=== PATIENT | male | born 1955 | race Caucasian/White ===

== ENCOUNTER 2016-02-19 18:01 | Inpatient (IN) | payer SELFPAY ==
--- NOTE | 2016-02-19 19:04 | RAD ---
Examination: AP pelvis and two-view right hip. Clinical indication:Right hip pain fall on ice. Comparisons:None Findings: Pelvis: The pelvic ring is intact. No displaced fractures identified. The sacrum and anterior sacral neuroforamina are grossly within normal limits. Right hip: Fracture: There is a transverse fracture of the right femoral neck. There is slight impaction at the fracture site. Joint space: There is bilateral hip joint space narrowing with osteoarthritis. Femoral head: No subchondral collapse is identified. Acetabulum: Acetabular ossified formation is noted. Soft tissues: Grossly unremarkable. IMPRESSION: Transverse fracture right femoral neck with slight impaction. There is bilateral hip osteoarthritis. Currently no discernible displaced pelvic fracture is identified.
[2016-02-19 19:48] LABS: ABSOLUTE NEUTROPHIL COUNT 8.8 K/mm3 (1.8-7.7); BASO % 0.4 % (0.2-1.0); EOS # 0.1 (0.0-0.5); EOS % 1.3 % (0.9-2.9); HEMATOCRIT 41.4 % (32.0-52.0); HEMOGLOBIN 13.8 gm/l (14.0-18.0); IMM NEUT% 0.3 % (0-1); LYMPH % 8.9 % (15-45); MEAN CELL VOLUME 94.1 fl (80.0-94.0); MEAN CORPUSCULAR HEMOGLOBIN 31.4 pg (27.0-31.0); MEAN CORPUSCULAR HGB CONC 33.3 g/dl (33.0-37.0); MEAN PLATELET VOLUME 11.2 fl (7.4-10.4); MONO # 0.7 (0.0-0.8); MONO % 6.5 % (4-12); NEUT % 82.6 % (43-75); PLATELET COUNT 196 K/mm3 (130-400); RED CELL DISTRIBUTION WIDTH 12.2 % (11.5-14.5)
[2016-02-19 20:02] LABS: INR 1.02; PROTHROMBIN TIME 10.7 SECONDS (9.3-11.4)
[2016-02-19 20:05] LABS: ALB/GLOB RATIO 1.5 (>1.0); ALBUMIN 4.2 gm/dL (3.5-5.7); CALCIUM 9.2 mg/dL (8.6-10.3)
[2016-02-19] MEDS ORDERED: BISACODYL 5 MG TABLET.EC PO PRN (20:16)
[2016-02-19] MEDS ORDERED: BISACODYL 10 MG SUP PR PRN (20:16)
[2016-02-19] MEDS ORDERED: SODIUM CHLORIDE 0.9% 100 ML IV PRN (20:16)
[2016-02-19] MEDS ORDERED: MENTHOL/CETYLPYRD 1 EACH LOZENGE PO PRN (20:16)
[2016-02-19] MEDS ORDERED: BLISTEX LIPSTICK 1 EACH TP PRN (20:16)
[2016-02-19] MEDS ORDERED: MAGNESIUM HYDROXIDE 30 ML UDCUP PO PRN (20:16)
[2016-02-19] MEDS ORDERED: ONDANSETRON 4 MG/2ML 2 ML VIAL IV PRN (20:19)
[2016-02-19 20:28] VITALS: BMI 23.0
[2016-02-19] MEDS ORDERED: PUMP TUBING ONE (20:33)
[2016-02-19] MEDS: D5 1/2NS with 20 mEq KCL 1,000 ML IV SCH (20:36)
[2016-02-19] MEDS: DOCUSATE SODIUM 100 MG CAPSULE PO SCH (20:37)
[2016-02-19] MEDS: KETOROLAC TROMETHAMINE 15 MG/ML VIAL IV PRN (20:41)
[2016-02-19] MEDS: MORPHINE SULFATE 2 MG/ML SYRINGE IV PRN (22:20)
[2016-02-20] MEDS: KETOROLAC TROMETHAMINE 15 MG/ML VIAL IV PRN (03:11)
[2016-02-20] MEDS ORDERED: SODIUM CHLORIDE 0.9% FLUSH 10 ML ONE (03:36)
[2016-02-20] MEDS ORDERED: IV START KIT ONE (03:37)
[2016-02-20] MEDS: MORPHINE SULFATE 2 MG/ML SYRINGE IV PRN (03:57)
--- NOTE | 2016-02-20 04:57 | HP ---
SAMUEL LECHUGA [id number] DATE OF ADMISSION: February 19, 2016 CHIEF COMPLAINT: Right hip pain. HISTORY OF PRESENT ILLNESS: The patient is a 61-year-old male without past medical history who slipped and fell on the ice today about 10:30 landing on his right hip. He did not notice any injury elsewhere but had difficulty bearing weight after that. He took some ibuprofen, but with ongoing difficulty came to the emergency room and on x-ray fracture was noted. Hospitalist service requested to admit to facilitate operative repair. PAST MEDICAL HISTORY: Remarkable for: 1. Some osteoarthritis. 2. He had hepatitis A as a child while in [place]. PAST SURGICAL HISTORY: Cataracts which have been replaced bilaterally. ALLERGIES: NO KNOWN DRUG ALLERGIES. MEDICATIONS: No prescription only occasional [id number] ibuprofen. 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 He has been to Blanca for 32 years. They have five kids. No smoking, no alcohol. He goes to [employer] in [place]. He was actually born in [place] but grew up in [place] and then also lived in [place]. He does speak Romansh but speaks Nepalese fluently. He has one cat. He enjoys woodworking. FAMILY HISTORY: Father is 84, has some age related illnesses and some Alzheimer's and colon surgery. Mother is 83. She has had her hip replaced. His paternal grandmother has had some osteoporosis. REVIEW OF SYSTEMS: Eyes have been okay. Ears, okay. Nose, okay. Mouth, okay. Neck is okay although sometimes he has a little bit of difficulty swallowing if he is trying to swallow fast. No lung history. No heart history. He has an occasional history of stomach acid reflux post prandial. He has had some constipation. No urinary complaints. Legs have been okay, just some arthritis. No skin complaints. PHYSICAL EXAM: GENERAL: A very pleasant male in the emergency department with his . VITAL SIGNS: Blood pressure 147/77, pulse 99, respirations 12, 98.6 temperature, 95% saturation on room air. He reports being about 6 feet tall and 170 pounds. HEAD: Head is normocephalic, atraumatic. EYES: Are unremarkable. EARS: Some cerumen noted bilaterally. Hearing is adequate. NOSE: Is normal. MOUTH: Is unremarkable. Dentition is intact. NECK: Is supple, no jugular venous distension, no masses, no tenderness LUNGS: Clear to auscultation bilaterally. HEART: Generally a regular rate and rhythm but no murmur noted. ABDOMEN: Soft, nontender, nondistended. Bowel sounds are normal. No rebound, no guarding, no masses. Right groin with some tenderness consistent with hip fracture. GENITOURINARY: Exam is deferred. LOWER EXTREMITIES: Without clubbing, cyanosis or edema. Right leg is externally rotated and slightly shortened. NEUROLOGIC: Is unremarkable. He is oriented times three. LABORATORY: His labs showed a white count of 10.7, hemoglobin 13.8, MCV of 94.1, platelets 196, INR 1.02. Sodium 137, potassium 3.9, chloride 103, anion gap 10, BUN 11, creatinine 1.0, glucose 107, calcium 9.2. Liver function tests are normal. IMAGING: X-ray shows transfer fracture of the right femoral neck with slight impaction, bilateral hip osteoarthritis. No pelvic fracture identified. ELECTROCARDIOGRAM: No electrocardiogram is available yet. ASSESSMENT AND PLAN: 1. Right femoral neck fracture with slight impaction. Appreciate orthopedic care. Dr. Torres indicates this is likely to be repaired Saturday, February 20, 2016. Anticipate making him nothing by mouth after midnight. Will order pain medicines, plan IV fluids and appreciate orthopedic input. 2. Venous thrombosis prophylaxis. Anticipate mechanical treatment. cc: Karthikeyan Palomo M.D.
[2016-02-20 06:11] LABS: HEMATOCRIT 35.7 % (32.0-52.0); HEMOGLOBIN 11.8 gm/l (14.0-18.0); MEAN CELL VOLUME 94.4 fl (80.0-94.0); MEAN CORPUSCULAR HEMOGLOBIN 31.2 pg (27.0-31.0); MEAN CORPUSCULAR HGB CONC 33.1 g/dl (33.0-37.0); RED CELL DISTRIBUTION WIDTH 12.2 % (11.5-14.5)
[2016-02-20 06:34] LABS: CALCIUM 8.2 mg/dL (8.6-10.3)
[2016-02-20] MEDS: DOCUSATE SODIUM 100 MG CAPSULE PO SCH ×2 (08:00→22:48)
--- NOTE | 2016-02-20 10:15 | PDOC43 ---
- Subjective Chief Complaint: hip fx Patient reports a little nausea, but otherwise doing ok. No new c/o, just soreness from fx. - Objective Vital Signs Temperature 97.8 F 02/20/16 07:00 Pulse Rate 62 02/20/16 07:00 Respiratory Rate 20 02/20/16 07:00 Blood Pressure 104/62 02/20/16 07:00 O2 Saturation by Pulse Oximetry 94 02/20/16 07:00 Oxygen Delivery Method Room Air Oxygen Flow Rate 0 Vital Signs Last 12 Hours Temp Pulse Resp BP Pulse Ox 02/20/16 07:00 97.8 F 62 20 104/62 94 02/20/16 03:18 72 16 112/70 94 02/20/16 03:00 61 16 100/62 90 02/20/16 01:10 16 Intake and Output 02/18/16 02/19/16 02/20/16 23:59 23:59 23:59 Intake Total 1101 Output Total 1075 Balance 26 General: Alert, Cooperative, No Acute Distress HEENT: Atraumatic Lungs: Clear to Auscultation Bilaterally, Normal Air Movement Cardiovascular: Regular Rate and Rhythm Abdomen: Soft, Normal Bowel Sounds, Non-Distended, No Tenderness, No Rebounding Extremities: Other (R hip marked for repair), No Edema Skin: Normal Color Neurological: Normal Speech Psych/Mental Status: Normal Affect Laboratory 02/20/16 05:15 02/20/16 05:15 02/20/16 05:15 RBC 3.78 L MCV 94.4 H MCH 31.2 H Anion Gap 7 L Calcium 8.2 L Current Medications: Current meds reviewed in EMR. Active Medications Benzocaine/Menthol (Cepacol) 1 each PO PRN PRN PRN Reason: Sore Throat Bisacodyl (Dulcolax) 10 mg OR DAILY PRN PRN Reason: Constipation Bisacodyl (Dulcolax) 5 mg PO DAILY PRN PRN Reason: Constipation Docusate Sodium (Colace) 100 mg PO BID [facility] Last Admin: 02/20/16 08:00 Dose: Not Given Potassium Chloride/Dextrose/Sod Cl (D51/2ns With 20 Meq Kcl) 1,000 mls @ 75 mls /hr IV .[id number] [facility] Last Admin: 02/19/16 20:36 Dose: 75 mls/hr Sodium Chloride (Sodium Chloride 0.9%) 100 mls @ 25 mls/hr IV PRN PRN PRN Reason: Flush Ketorolac Tromethamine (Toradol) 15 mg IV Q6H PRN PRN Reason: Pain Last Admin: 02/20/16 03:11 Dose: 15 mg Magnesium Hydroxide (Milk Of Magnesia) 30 ml PO DAILY PRN PRN Reason: Constipation Morphine Sulfate (Morphine Sulfate) 2 mg IV Q1H PRN PRN Reason: Pain Last Admin: 02/20/16 03:57 Dose: 2 mg Ondansetron HCl (Zofran) 4 mg IV Q4H PRN PRN Reason: Nausea/Vomiting Last Admin: 02/20/16 03:11 Dose: 4 mg Petrolatum/Paraffin/Mineral Oil (Blistex) 1 each TP PRN PRN PRN Reason: Dry and/or chapped lips Sodium Chloride (Normal Saline 10ml Flush) 10 - 50 ml IV PRN PRN PRN Reason: IV Flush Last Admin: 02/20/16 03:57 Dose: 30 ml Sodium Chloride (Normal Saline 10ml Flush) 10 ml IV Q8HR [facility] Last Admin: 02/20/16 08:00 Dose: Not Given - Problems: Assessment/Plan (1) Closed right femoral fracture Qualifiers: Encounter type: initial encounter Femur location: neck Qualifier Code: (S72.001A) Fracture of unspecified part of neck of right femur, initial encounter for closed fracture Status: Acute Assessment/Plan: Anticipating repair today. Dr Palomo indicated SOTO would be best considering hip arthritis. Checking labs for preop. VTE Prophylaxis: mechanical Disposition: TBD, but pt underlying status quite good.
[2016-02-20] MEDS: D5 1/2NS with 20 mEq KCL 1,000 ML IV SCH ×4 (10:29→22:33)
--- NOTE | 2016-02-20 11:10 | CONS ---
Jm LECHUGA Kraig [id number] : 1955 ORTHOPEDIC CONSULTATION DATE OF CONSULTATION: February 19, 2016 HISTORY OF PRESENT ILLNESS: Jm Lechuga is a 61-year-old male seen at the request of the emergency department physician for evaluation of a right hip fracture. The patient is examined in his bed in the presence of his and daughter. Imaging studies and medical records are reviewed. HISTORY OF INJURY: Mr. Lechuga states that he slipped on the ice earlier today approximately 10:30 and fell onto his right hip. He had significant pain. He got up and walked into the house, thinking that he had a bruise, however the pain persisted. He subsequently presented to the emergency department at [facility] where he was examined by the emergency department physician Dr. Kohli who ordered x-rays and noted the presence of an impact right femoral neck fracture. I was subsequently contacted for orthopedic consultation and Dr. Faith the transmission systems operator hospitalist admitted the patient. His current complaint, he states that he has pain in the groin area. He denies any numbness or tingling. He denies any dizziness or other symptoms. He is recumbent in bed and is not weight bearing at this time. PAST MEDICAL HISTORY: He denies any history of systemic or metabolic diseases. PAST SURGICAL HISTORY: Bilateral cataract surgery. SOCIAL HISTORY: He denies the use of alcohol or tobacco products. 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 PHYSICAL EXAMINATION: GENERAL: Reveals a well nourished, well developed male who is cooperative with the examination. VITAL SIGNS: He weighs 77.11 kg and is 182.88 cm in height. FOCUSED EXAM: Inspection of the right lower extremity indicates a mild degree of shortening and external rotation. He has intact neurovascular status. Good peripheral pulses including dorsalis pedis and posterior tibial. He has good movement of the foot and ankle, knee flexion causes him pain in the area of the hip. He has right hip pain with movement of the hip. IMAGING STUDIES: X-rays of the right hip indicate the presence of a right femoral neck fracture with some slight impaction and degenerative changes at hip.. DIAGOSTIC IMPRESSION: Right femoral neck fracture. PLAN: We discussed with the patient the various treatment options. I have I advised him that I will be signing off to Dr. Palomo tomorrow morning and I will ask him to kindly take over his orthopedic care. We discussed the possible treatment options; however the final decision will be between Dr. Palomo and Mr. Lechuga. He will be kept nothing orally status and I will advise Dr. Palomo tomorrow when I sign off to him. The patient feels comfortable with this decision. Job [id number] cc: [facility]
[2016-02-20] MEDS ORDERED: BUPIVACAINE 0.25% (MDV) 24 ML, MORPHINE SULFATE 8 MG, EPINEPHRINE 0.3 MG in SODIUM CHLO... IF PRN (12:00)
[2016-02-20] MEDS ORDERED: BUPIVACAINE 0.25% (MDV) 20 ML in SODIUM CHLORIDE 0.9% FLUSH 20 ML IF PRN (12:01)
--- NOTE | 2016-02-20 12:22 | RAD ---
02/20/2016 12:17 PM CHEST - 1 VIEW History: Preop chest x-ray Comparison: None Findings: Single AP view of the chest is obtained. The lungs are clear with out effusion or pneumothorax. The cardiomediastinal silhouette is unremarkable.. The osseous structures demonstrate degenerative changes of the bilateral shoulder. Joint bodies are thought to be present on the left. There may also be an area of soft tissue calcification associated with the proximal left humerus seen near the edge of the film. IMPRESSION: No acute intrathoracic process. Other findings as above.
[2016-02-20] MEDS ORDERED: ONDANSETRON 4 MG/2ML 2 ML VIAL IV ONE (14:30)
[2016-02-20] MEDS ORDERED: CELECOXIB 200 MG CAPSULE PO ONE (14:30)
[2016-02-20] MEDS ORDERED: GABAPENTIN 600 MG TABLET PO ONE (14:30)
[2016-02-20] MEDS ORDERED: FAMOTIDINE 20 MG TABLET PO ONE (14:30)
[2016-02-20] MEDS ORDERED: TRANEXAMIC ACID 1,000 MG in SODIUM CHLORIDE 0.9% 100 ML IV PRN (14:30)
[2016-02-20] MEDS ORDERED: OXYCODONE HCL 10 MG TAB.SR PO ONE (14:30)
[2016-02-20] MEDS ORDERED: TRAMADOL HCL 50 MG TABLET PO ONE (14:30)
[2016-02-20] MEDS ORDERED: POLYMYXIN B SULFATE 500,000 UNITS, BACITRACIN 25,000 UNITS in SODIUM CHLORIDE 3 L IRRIG... IR PRN (14:30)
[2016-02-20] MEDS ORDERED: CLONIDINE HCL 0.1 MG/24 HR (7 DAY PATCH) TD SCH (14:30)
[2016-02-20] MEDS ORDERED: LACTATED RINGERS 1,000 ML ONE (15:29)
[2016-02-20] MEDS ORDERED: CEFAZOLIN SODIUM 2 GRAM PREMIX 2 G in Premix (D5W) 100 ml 1 EACH IV PRN (15:32)
[2016-02-20] MEDS ORDERED: CEFAZOLIN SODIUM 2 GRAM PREMIX 100 ML IV ONE (15:33)
[2016-02-20] MEDS ORDERED: MIDAZOLAM HCL 5 MG/5 ML VIAL ONE (16:48)
[2016-02-20] MEDS ORDERED: FENTANYL 100 MCG/2 ML VIAL ONE (16:50)
[2016-02-20] MEDS ORDERED: MORPHINE SULFATE 4 MG/ML SYRINGE IV PRN (17:24)
[2016-02-20] MEDS ORDERED: NALOXONE HCL 0.4 MG/ML VIAL IV PRN (17:24)
[2016-02-20] MEDS ORDERED: MEPERIDINE 25 MG/ML SYRINGE IV PRN (17:24)
[2016-02-20] MEDS ORDERED: HYDRALAZINE HCL 20 MG/1 ML VIAL IV PRN (17:24)
[2016-02-20] MEDS ORDERED: ATROPINE SULFATE 0.4 MG/1 ML VIAL IV PRN (17:24)
[2016-02-20] MEDS ORDERED: PROMETHAZINE HCL 25 MG/ML VIAL IM PRN (17:24)
[2016-02-20] MEDS ORDERED: ONDANSETRON 4 MG/2ML 2 ML VIAL IV PRN (17:24)
[2016-02-20] MEDS ORDERED: LACTATED RINGERS 1,000 ML IV SCH (17:30)
[2016-02-20] MEDS ORDERED: BUPIVACAINE 0.75% SPINAL AMPUL 2 ML ONE (18:31)
[2016-02-20] MEDS ORDERED: SPINAL PROCEDURAL TRAY 1 EACH ONE (18:31)
--- NOTE | 2016-02-20 19:49 | RAD ---
PELVIS COMPARISON: Pelvis right hip 3 views 02/19/2016 HISTORY: Daily postop right hip arthroplasty. FINDINGS: Views: AP pelvis. Bones: Normal. Joints: Satisfactory positioning of the right total hip uncemented arthroplasty. Soft tissues: Normal. IMPRESSION: 1. Satisfactory appearance of the right total hip uncemented arthroplasty.
[2016-02-20] MEDS ORDERED: OXYCODONE HCL 5 MG TABLET PO PRN (19:57)
[2016-02-20] MEDS ORDERED: CALCIUM CARBONATE 500 MG TAB.CHEW PO PRN (19:57)
[2016-02-20] MEDS ORDERED: HYDROXYZINE PAMOATE 25 MG CAPSULE PO PRN (19:57)
[2016-02-20] MEDS ORDERED: TEMAZEPAM 15 MG CAPSULE PO PRN (19:57)
[2016-02-20] MEDS ORDERED: HYDROMORPHONE HCL 0.5 MG/0.5 ML SYRINGE IV PRN (19:57)
[2016-02-20] MEDS ORDERED: KETOROLAC TROMETHAMINE 30 MG/ML 1 ML VIAL IV PRN (19:57)
[2016-02-20] MEDS: ASCORBIC ACID 500 MG TABLET PO SCH (22:49)
[2016-02-20] MEDS: ACETAMINOPHEN 500 MG TABLET PO SCH (22:49)
[2016-02-21] MEDS ORDERED: PUMP TUBING ONE (00:31)
[2016-02-21] MEDS: CEFAZOLIN SODIUM 1 GRAM PREMIX 1 G in Premix (D5W) 50 ml 1 EACH IV SCH ×2 (00:34→09:37)
[2016-02-21] MEDS: D5 1/2NS with 20 mEq KCL 1,000 ML IV SCH ×5 (01:28→20:43)
[2016-02-21] MEDS ORDERED: TRAMADOL HCL 50 MG TABLET PO PRN (02:00)
[2016-02-21] MEDS: ACETAMINOPHEN 500 MG TABLET PO SCH ×4 (03:27→20:45)
[2016-02-21] MEDS: ONDANSETRON 4 MG/2ML 2 ML VIAL IV PRN ×2 (03:27→09:37)
[2016-02-21 06:00] LABS: HEMATOCRIT 33.6 % (32.0-52.0); MEAN CELL VOLUME 95.2 fl (80.0-94.0); MEAN CORPUSCULAR HEMOGLOBIN 31.2 pg (27.0-31.0); MEAN CORPUSCULAR HGB CONC 32.7 g/dl (33.0-37.0); RED CELL DISTRIBUTION WIDTH 12.4 % (11.5-14.5)
--- NOTE | 2016-02-21 07:29 | PDOC43 ---
- Subjective Findings: Pt seen this am awake. not having much pain at this point but did have N/V in the middle of the night. Feels better after Zofran. Subjective: Reports Pain Tolerable, Reports Nausea, Denies Chest Pain, Denies Shortness of Breath, Denies Fever - Objective Vital Signs Temperature 98.8 F 02/20/16 22:45 Pulse Rate 80 02/21/16 03:30 Respiratory Rate 10 02/21/16 03:30 Blood Pressure 114/73 02/21/16 03:30 O2 Saturation by Pulse Oximetry 90 02/21/16 03:30 Oxygen Delivery Method Nasal Cannula Oxygen Flow Rate 2 Laboratory 02/21/16 05:30 02/20/16 05:15 02/21/16 05:30 RBC 3.53 L MCV 95.2 H MCH 31.2 H MCHC 32.7 L Active Medication Orders Category Date Time Status Acetaminophen [Tylenol] Med 02/20/16 21:00 Active 1,000 mg PO Q6H Ascorbic Acid [Vitamin C] Med 02/20/16 21:00 Active 500 mg PO BID Aspirin (Enteric Coated) [Ecotrin] Med 02/21/16 09:00 Active 325 mg PO DAILY Bisacodyl [Dulcolax] Med 02/23/16 19:27 Active 10 mg UT DAILY PRN Calcium Carbonate [Tums] Med 02/20/16 19:57 Active 1,000 - 2,000 mg PO Q2H PRN Cefazolin Sodium 1 Gram Premix [Ancef 1 Gram Premix] 1 Med 02/21/16 01:00 Active g Premix (D5W) 50 ml 1 each IV Q8H Celecoxib [Celebrex] Med 02/21/16 09:00 Active 200 mg PO DAILY D5 1/2NS with 20 mEq KCL [D51/2NS with 20 mEq KCL] 1, Med 02/20/16 19:57 Active 000 ml IV 125 mls/hr Docusate Sodium [Colace] Med 02/20/16 21:00 Active 100 mg PO BID Hydromorphone HCl [Dilaudid] Med 02/20/16 19:57 Active 0.5 mg IV Q1H PRN Hydroxyzine Pamoate [Vistaril] Med 02/20/16 19:57 Active 25 - 50 mg PO Q4H PRN Ketorolac Tromethamine [Toradol] Med 02/20/16 19:57 Active 30 mg IV Q6H PRN Magnesium Hydroxide [Milk of Magnesia] Med 02/21/16 19:27 Active 30 ml PO DAILY PRN Multivitamins [One-A-Day] Med 02/21/16 09:00 Active 1 tab PO DAILY Ondansetron 4 mg/2ml Vial [Zofran] Med 02/20/16 19:57 Active 4 - 6 mg IV Q6H PRN Oxycodone HCl [Roxicodone] Med 02/20/16 19:57 Active 5 - 10 mg PO Q4H PRN Remove Patch Med 02/21/16 14:30 Once 1 each TD X1 ONE Sodium Chloride 0.9% Flush [Normal Saline 10ml Flush] Med 02/20/16 19:57 Active 10 - 50 ml IV PRN PRN Sodium Chloride 0.9% Flush [Normal Saline 10ml Flush] Med 02/21/16 01:00 Active 10 ml IV Q8HR Temazepam [Restoril] Med 02/20/16 19:57 Active 15 mg PO BEDTIME PRN Tramadol HCl [Ultram] Med 02/21/16 02:00 Active 50 mg PO Q6H PRN Intake and Output 02/19/16 02/20/16 02/21/16 23:59 23:59 23:59 Intake Total 2031 3979 Output Total 1525 1275 Balance 506 2704 General: Afebrile HEENT: Atraumatic Lungs: Normal Air Movement Abdomen: Non-Distended Skin: Other (Pallor) Neurological: Alert, Oriented x 4 Psych/Mental Status: Normal Affect - Right Lower Extremity Motor: Extensor Hallucis Longus: 5/5, Tibialis Anterior: 5/5, Gastrocnemius: 5/5 , Peroneals: 5/5, Quadriceps: 2/5 Gross Sensation to Light Touch: Present: Deep Peroneal Nerve Motion: Calf soft NT Gentle Rom of hip and knee without pain Weak in his Quad at this point - Problems (1) Status post right hip replacement Status: Acute Assessment/Plan: Pod#1 SOTO for femoral neck fracture 1. Physical Therapy:Mobilize with PT/OT, encouraged bed exercise 2. Pain Control:Per protocol and Dr. Palomo's orders 3. DVT Prophylaxis: ASA, foot pumps and mobility 4. Disposition:Doing fine at this point 5. Medical Issues:Management per hospitalist appreciate the care and consult
[2016-02-21] MEDS ORDERED: PROMETHAZINE HCL 6.25 MG in SODIUM CHLORIDE 0.9% 50 ML IV ONE (08:29)
--- NOTE | 2016-02-21 10:01 | PDOC43 ---
- Subjective Chief Complaint: hip fx No concerns, nausea after trying some broth and coffee. Denies shortness of breath, chest pain, no dizziness when sitting up. Subjective: Reports Pain Tolerable, Reports Nausea, Denies Tolerating Diet Well , Denies Bowel Movement, Denies Shortness of Breath, Denies Cough, Denies Chest Pain, Denies Abdominal Pain - Objective Vital Signs Temperature 97.9 F 02/21/16 07:10 Pulse Rate 66 02/21/16 07:10 Respiratory Rate 14 02/21/16 07:10 Blood Pressure 114/68 02/21/16 07:10 O2 Saturation by Pulse Oximetry 97 02/21/16 07:10 Oxygen Delivery Method Nasal Cannula Oxygen Flow Rate 2 Intake and Output 02/19/16 02/20/16 02/21/16 23:59 23:59 23:59 Intake Total 2031 3979 Output Total 1525 1275 Balance 506 2704 General: Alert, Oriented x3, Cooperative, No Acute Distress HEENT: Atraumatic, PERRLA, EOMI, Mucous membr. moist/pink Lungs: Clear to Auscultation Bilaterally, Normal Air Movement, Other (no crackle or wheeze) Cardiovascular: Regular Rate and Rhythm, Normal S1, Normal S2 Abdomen: Soft, Non-Distended, No Rigid, No Tenderness, No Rebounding Extremities: Edema, No Cyanosis, No Tenderness Peripheral Pulses: Radial (L): 2+, Radial (R): 2+ Neurological: Normal Speech Psych/Mental Status: Normal Mood Laboratory 02/21/16 05:30 02/20/16 05:15 02/21/16 05:30 RBC 3.53 L MCV 95.2 H MCH 31.2 H MCHC 32.7 L Current Medications: Current meds reviewed in EMR. - Problems: Assessment/Plan (1) Status post right hip replacement Status: Acute Assessment/Plan: Following fall on ice with right femoral neck fracture. Management per orthopedics VTE Prophylaxis: mechanical Disposition: TBD, but pt underlying status quite good.
[2016-02-21] MEDS ORDERED: SCOPOLAMINE 1.5 MG/72 HR 1 EACH PATCH TD ONE (10:18)
[2016-02-21] MEDS: MULTIVITAMINS 1 TAB TABLET PO SCH (11:09)
[2016-02-21] MEDS: DOCUSATE SODIUM 100 MG CAPSULE PO SCH ×2 (11:09→20:45)
[2016-02-21] MEDS: ASCORBIC ACID 500 MG TABLET PO SCH ×2 (11:10→20:45)
[2016-02-21] MEDS: ASPIRIN (ENTERIC COATED) 325 MG TABLET.EC PO SCH (12:10)
[2016-02-21] MEDS: CELECOXIB 200 MG CAPSULE PO SCH (12:10)
[2016-02-21] MEDS ORDERED: REMOVE PATCH 1 EACH UNIT TD SCH (14:30)
[2016-02-21] MEDS ORDERED: REMOVE PATCH 1 EACH UNIT TD ONE (14:30)
[2016-02-21] MEDS ORDERED: MAGNESIUM HYDROXIDE 30 ML UDCUP PO PRN (19:27)
[2016-02-22] MEDS: ACETAMINOPHEN 500 MG TABLET PO SCH ×2 (02:37→09:38)
[2016-02-22] MEDS: D5 1/2NS with 20 mEq KCL 1,000 ML IV SCH (05:09)
[2016-02-22 06:20] LABS: HEMATOCRIT 32.5 % (32.0-52.0); HEMOGLOBIN 10.9 gm/l (14.0-18.0)
--- NOTE | 2016-02-22 08:31 | PDOC43 ---
- Subjective Findings: no overnight c/o- nausea resolved. Pain control reasonable - Objective Vital Signs Temperature 97.8 F 02/22/16 07:04 Pulse Rate 70 02/22/16 07:04 Respiratory Rate 14 02/22/16 07:04 Blood Pressure 106/59 02/22/16 07:04 O2 Saturation by Pulse Oximetry 95 02/22/16 07:04 Oxygen Delivery Method Room Air Oxygen Flow Rate 0 Laboratory 02/22/16 05:30 02/20/16 05:15 Active Medication Orders Category Date Time Status Acetaminophen [Tylenol] Med 02/20/16 21:00 Active 1,000 mg PO Q6H Ascorbic Acid [Vitamin C] Med 02/20/16 21:00 Active 500 mg PO BID Aspirin (Enteric Coated) [Ecotrin] Med 02/21/16 09:00 Active 325 mg PO DAILY Bisacodyl [Dulcolax] Med 02/23/16 19:27 Active 10 mg CO DAILY PRN Calcium Carbonate [Tums] Med 02/20/16 19:57 Active 1,000 - 2,000 mg PO Q2H PRN Celecoxib [Celebrex] Med 02/21/16 09:00 Active 200 mg PO DAILY D5 1/2NS with 20 mEq KCL [D51/2NS with 20 mEq KCL] 1, Med 02/20/16 19:57 Active 000 ml IV 125 mls/hr Docusate Sodium [Colace] Med 02/20/16 21:00 Active 100 mg PO BID Hydromorphone HCl [Dilaudid] Med 02/20/16 19:57 Active 0.5 mg IV Q1H PRN Hydroxyzine Pamoate [Vistaril] Med 02/20/16 19:57 Active 25 - 50 mg PO Q4H PRN Magnesium Hydroxide [Milk of Magnesia] Med 02/21/16 19:27 Active 30 ml PO DAILY PRN Multivitamins [One-A-Day] Med 02/21/16 09:00 Active 1 tab PO DAILY Ondansetron 4 mg/2ml Vial [Zofran] Med 02/20/16 19:57 Active 4 - 6 mg IV Q6H PRN Oxycodone HCl [Roxicodone] Med 02/20/16 19:57 Active 5 - 10 mg PO Q4H PRN Sodium Chloride 0.9% Flush [Normal Saline 10ml Flush] Med 02/20/16 19:57 Active 10 - 50 ml IV PRN PRN Sodium Chloride 0.9% Flush [Normal Saline 10ml Flush] Med 02/21/16 01:00 Active 10 ml IV Q8HR Temazepam [Restoril] Med 02/20/16 19:57 Active 15 mg PO BEDTIME PRN Tramadol HCl [Ultram] Med 02/21/16 02:00 Active 50 mg PO Q6H PRN Intake and Output 02/20/16 02/21/16 02/22/16 23:59 23:59 23:59 Intake Total 2030 7982 1900 Output Total 1525 6135 2550 Balance 506 9238 -102 General: Afebrile HEENT: Mucous membr. moist/pink Lungs: Normal Air Movement Cardiovascular: Regular Rate and Rhythm Neurological: Alert, Oriented x 4 Psych/Mental Status: Normal Affect, Normal Mood Peripheral Pulses: Right Posterior Tibialis: 2+, Right Dorsalis Pedis: 2+ - Right Lower Extremity Incision: Dressing Clean/Dry/Intact, Well Approximated, No Drainage, No Erythema Motor: Extensor Hallucis Longus: 5/5, Tibialis Anterior: 5/5, Gastrocnemius: 5/5 , Peroneals: 5/5 Gross Sensation to Light Touch: Present: Deep Peroneal Nerve, Superficial Peroneal Nerve, Medial Plantar Nerve, Lateral Plantar Nerve Capillary Refill: < 3 Seconds Motion: gentle AROM/PROM well tolerated - Problems (1) Status post right hip replacement Status: Acute Assessment/Plan: Pod#2 SOTO for femoral neck fracture- doing well 1. Physical Therapy:Mobilize with PT/OT, encouraged bed exercise. Outpatient PT with [facility] 2. Pain Control:reasonable with PO regimen 3. DVT Prophylaxis: ASA, foot pumps and mobility 4. Disposition:Doing fine at this point- plan d/c today after PT. Instructions reviewed 5. Medical Issues:stable.
[2016-02-22] MEDS: CELECOXIB 200 MG CAPSULE PO SCH (09:38)
[2016-02-22] MEDS: DOCUSATE SODIUM 100 MG CAPSULE PO SCH (09:38)
[2016-02-22] MEDS: ASPIRIN (ENTERIC COATED) 325 MG TABLET.EC PO SCH (09:39)
[2016-02-22] MEDS: MULTIVITAMINS 1 TAB TABLET PO SCH (09:39)
[2016-02-22] MEDS: ASCORBIC ACID 500 MG TABLET PO SCH (09:39)
[2016-02-22 13:10] VITALS: BP 100/55
--- NOTE | 2016-02-23 10:47 | CONS ---
DATE OF CONSULTATION: February 20, 2016 HEADINGS, SAMUEL Ding : 1955 [id number] HISTORY: Patient is a 61-year-old healthy male who slipped on the ice yesterday morning coming down onto his right lateral hip. He had immediate pain and inability to weight bear. He presented to the ER, radiographs demonstrated a femoral neck fracture and he was admitted to the hospitalist's service. I have been asked to see him with respect to discussion of definitive management options. Of note, he does give a history of chronic bilateral hip and knee pain secondary to "osteoarthritis". He has not had any specific treatments for this recently. He has no recent illnesses. He denies any significant medical problems. PAST MEDICAL HISTORY: ALLERGIES: NKDA MEDICATIONS: None other than prn ibuprofen. SIGNIFICANT MEDICAL PROBLEMS: History of bilateral cataract surgery. SOCIAL HISTORY: Patient denies alcohol or tobacco use. 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 He is and has no local PCP. REVIEW OF SYSTEMS: No recent cardiac, pulmonary or abdominal history or symptomatology. PHYSICAL EXAMINATION: Patient is a well-developed, well-nourished male in no acute distress, normal appearing mood and affect. For general physical exam please refer to hospitalist's admission consultation as well as ER physician's note. Physical exam of the right lower extremity shows mild shortening with external rotation. He has an irritable hip to passive flexion and rotation. He is unable to do an independent SLR. He holds the knee and hip both flexed as his most comfortable position. He is mildly tender laterally, NT in the groin. Thigh is soft and NT. Cursory evaluation of the knee shows no effusion, no focal periarticular tenderness. Calf is soft and NT. Distal light touch sensation and motor function are intact and symmetric. Pulses are palpable. RADIOGRAPHS: Xrays demonstrate fairly significant degenerative disease of the right hip. There is a femoral neck fracture in valgus alignment. IMPRESSION: Femoral neck fracture in a patient with fairly significant DJD of his right hip. PLAN: I talked to the patient regarding my thoughts and findings. We discussed definitive management options ranging from percutaneous pinning to a hemiarthroplasty to a total hip arthroplasty. Nonoperative management is not likely to be acceptable to the patient. I would favor a total hip arthroplasty in his situation given the significant symptoms that he has had chronically that have been progressive related to his degenerative disease. He understands the limitations, expectations as well as risks and possible complications including, but not limited to wound problems or infection, neurovascular injury, continued hip pain or dysfunction as well as the possibility of prosthetic wear or failure over time that may require additional operative or nonoperative treatment. He realizes the perioperative risks including risks associated with anesthesia and would like to proceed. PAR conference was held, questions and concerns addressed and informed consent obtained. We will proceed urgently today. He has been medically cleared by the hospitalist service. JES:julia CC: Rosio Becerra
--- NOTE | 2016-02-23 12:44 | OP ---
HEADINGSSAMUEL [id number] : 1955 DATE OF SURGERY: February 20, 2016 PREOPERATIVE DIAGNOSIS: DJD with superimposed right femoral neck fracture. POSTOPERATIVE DIAGNOSIS: Same PROCEDURE: Right Total Hip Arthroplasty COMPONENTS: Size 7 standard offset Tri-Lock femoral stem with a 36 +1.5 delta ceramic femoral head, 58mm [place] press-fit acetabular shell with a neutral cross-linked polyethylene liner. SURGEON: Stacia ASSIST: Latanya DAVIS) ANESTHESIA: Spinal per Kwasi EBL: 250 cc URINE OUTPUT: 350 cc IVF REPLACEMENT: Per anesthesia, 2 liters crystalloid DRAINS: None COMPLICATIONS: None HISTORY: Briefly, patient is a 61-year-old male with clinical and radiographic evidence most consistent with right femoral neck fracture. He had significant ipsilateral degenerative disease of the right hip. He presented to the ER. For additional details please refer to my prior consultation. After discussion he has elected to proceed with SOTO. A full PAR conference was held, questions and concerns were addressed, and informed consent was obtained. FINDINGS: Femoral neck fracture with some displacement, valgus orientation. He had significant degenerative disease of the hip joint with a large medial acetabular osteophyte as well as posterior hypertrophic acetabular osteophyte. PROCEDURE: The patient was taken to the operating room and after previously described anesthesia was placed in the lateral decubitus position on the operating room table and held with the peg board positioner. Benny prominences were well padded and an axillary roll was placed. The right hip girdle and lower extremity were then prepped and draped out in the usual sterile fashion. Preoperative antibiotics were given empirically. Intraoperative DVT prophylaxis consisted of bilateral mechanical foot pumps. Personal filtration suits were used as was a closed room environment. An oblique ten centimeter incision was made using the minimally invasive guide posterior and extending slightly proximal to the greater trochanter. We dissected through subcutaneous tissue down to the gluteus fascia. Electrocautery was used at this point and throughout the duration of the case to establish and maintain hemostasis. The gluteus fascia was incised in line with the incision and the muscle fibers split to expose the underlying bursal tissue. Tranexamic acid was infiltrated over 10 minutes prior to incision, 1 gram dose per protocol. A similar 2nd dose was given at initiation of closure. A deep self retaining field retractor was placed. The short external rotators were identified, the piriformis was tagged and reflected with the underlying capsule which was reflected in a U fashion off the femoral neck and tagged as well for later repair. Release of the capsule allowed for dislocation of the hip. This was facilitated with a T-handled corkscrew extractor. I did a femoral neck revision cut proximal to the lesser trochanter as per our preoperative template. The femoral head was brought up into the operative field. A femoral neck cut was made proximal to the lesser trochanter as per our preoperative templating. We then translated the femur anteriorly exposing the acetabulum. The remaining labrum was excised circumferentially. Osteophytes were debrided under direct visualization with an osteotome and rongeur. We reamed to the true acetabular floor and then incrementally up to a 57 as per our preoperative plan at which point we noted circumferential bleeding cancellous bone. This was trialed at approximately 45 degrees of abduction and 20 degrees of anteversion with good fit and stability. We then impacted the true acetabular component which was seated completely. An apical hole cover was placed and we impacted the neutral crosslinked polyethylene liner. Attention was then directed back to the femur. The remaining soft tissue was cleared from the piriformis fossa and we use a rongeur and box osteotome to enter the proximal femoral canal followed by the canal seeker and then the broach only system up to a size 7 matching the patient's [place] anteversion with good proximal fill and rotational stability. This was trialed with a standard offset +1.5. The hip was then reduced with good stability to 70 degrees of internal rotation in 90 degrees of flexion and full extension with no instability on external rotation. There was good soft tissue balance and approximately equal leg lengths. Satisfied, trial components were removed and we impacted the true femoral stem. The trunnion was then cleaned and dried and the femoral head was impacted. The hip was then reduced with stability as previously discussed. Satisfied, we turned our attention to closure. The wound was copiously irrigated with antibiotic pulsatile lavage. We then advanced the capsule and piriformis to the gluteus medius insertion. The gluteus fascia was closed with a running number two PDO StratoFix suture. 1st periarticular injection was given at this point per protocol into the capsule, synovium, gluteus and external rotators. The subcutaneous tissue was closed with interrupted 2-0 and 3-0 Vicryl and the skin was closed with a running 4-0 Monocryl stitch with Indermil and Steri-Strips. The 2nd periarticular injection was done at this point per protocol into the subcutaneous tissue superiorly and anteriorly to the incision. A sterile hip dressing was then applied, the patient was returned to the supine position, transferred to their hospital bed, and sent to the postoperative recovery room in stable condition. They tolerated the procedure well. Sponge, instrument, and needle count were correct. JES/mrw CC: [facility]
[2016-02-23] MEDS ORDERED: BISACODYL 10 MG SUP PR PRN (19:27)
--- NOTE | 2016-02-24 11:45 | DS ---
HEADINGS, Jm Cornell [id number] : 1955 DATE OF ADMISSION: February 19, 2016 DATE OF DISCHARGE: February 22, 2016 DISCHARGE DIAGNOSES: Right hip degenerative joint disease with a superimposed right femoral neck fracture. HOSPITAL PROCEDURES: Right total hip arthroplasty. SURGEON: Karthikeyan Palomo M.D. BRIEF HISTORY: Patient is a 61-year-old male who suffered a ground level fall on February 19, 2016 resulting in a right femoral neck fracture. Upon evaluation and consultation with Dr. Palomo he was found to have advanced right hip degenerative joint disease necessity and a right total hip arthroplasty. For the full history please see the chart note. BRIEF HOSPITAL COURSE: Patient was admitted on February 20, 2016 Dr. Karthikeyan Palomo performed a right total hip arthroplasty. Patient was moved to the recovery room in stable condition. They were given 4 doses of antibiotic for empiric coverage. DVT prophylaxis consisted of aspirin 325 mg, pneumatic compression SARAH hose and mobility. PT was instituted postop day 1 with right total hip arthroplasty protocol, posterior approach, weightbearing as tolerated. Their incision site remained benign, their vital signs remained stable and they remained neurally and vascularly intact through the duration of the stay. They were discharged home postop day, 2 to continue outpatient PT at [facility] with right total hip arthroplasty protocol, weightbearing as tolerated keeping total hip precautions in mind. Dr. Nguyễn Faith was consulted to manage perioperative medical comorbidities for his consultation, please see the chart note. DISCHARGE INSTRUCTIONS: 1. Keep the wound site clean and dry, change dressing daily or as needed. 2. Continue the use of SARAH hose bilaterally. 3. Ice pack over the wound site prn. 4. Continue total hip precautions. 5. Outpatient PT at [facility] with right total hip arthroplasty protocol, weightbearing as tolerated. MEDICATIONS: 1. Patient is to resume normal preop medications. 2. Anti-coagulation will be with aspirin 325 mg daily for six weeks. 3. Pain management will be with, Oxycodone, 5mg 1-2 every 4 hours prn for breakthrough pain, and Tramadol, 50mg every 6 hours prn pain. Celebrex 200 mg by mouth daily #20. Vistaril 25 mg one to two tablets every 4 to 6 hours as needed for itching. 4. Patient was also advised on utilization of a multi-vitamin with mineral daily as well as Vitamin C, 500mg, daily for 1 month. 5. Patient encouraged to take an iron supplement in the form of ferrous sulfate, 325mg daily for 4 weeks. 6. Colace, 100mg, b.i.d. until regular bowel movement. FOLLOW-UP: Please return to the clinic as scheduled for your first scheduled postop check. Prior to that point in time please call with any questions or concerns. Job [id number] CC: Rosio Becerra [facility] in [place]
== END 2016-02-22 11:40 | disposition home or self-care (01) | DRG 470 ==
LOC: ED 18:01 → MS 19:41
PROVIDERS: ADMIT Family Medicine; ATTEND Family Medicine
PROC: 0SR904A Replacement of Right Hip Joint with Ceramic on Polyethylene Synthetic Substitute, Uncemented, Open Approach (ICD-10-PCS; principal; 2016-02-20)
DX: S72.091A Other fracture of head and neck of right femur, initial encounter for closed fracture (principal); W00.0XXA Fall on same level due to ice and snow, initial encounter; Y92.014 Private driveway to single-family (private) house as the place of occurrence of the external cause; M19.90 Unspecified osteoarthritis, unspecified site